=== PATIENT | female | born 1965 | race African-American/Black ===

== ENCOUNTER → 2017-02-21 | Outpatient (CLI) | payer MEDICARE, OTHER ==
[~2017-02-21] MED LIST: ?ANTIBIOTIC; ALBUTEROL17 GM INH; ALBUTEROL17 GM NEB; ALER-CAP25 M1 PO; ALLERGY RELIEF25 MG PO; ALPRAZOLAM PO; ALPRAZOLAM0.5 MG PO; ATARAX PO; ATIVAN PO; BACTRIM DS TABL1 TA1 PO; BAYER ASPIRIN325 M1 PO; BENADRYL PO; BENADRYL25 M3 PO; BENADRYL25 MG PO; BENZONATATE PO; BENZTROPINE MESY1 MG PO; CIPRO PO; COMBIVENT U/D3 M4 INH; COUMADIN; COUMADIN PO; DILANTIN KAPSE100 MG PO; DILANTIN PO; ENOXAPARIN60 MG/0.1 SQ; FLUCONAZOLE150 MG PO; HYDROCODONE-APA1 T54 PO; HYDROCODONE-APA1 T58 PO; HYDROXYZINE HCL10 MG PO; HYDROXYZINE HCL25 M1 PO; HYDROXYZINE HCL50 MG PO; IPRAT-ALBUT 0.5-3 ML INH; KEPPRA1000 MG PO; KEPPRA750 MG PO; LAMICTAL PO; LAMICTAL100 MG PO; LEVAQUIN250 MG PO; LEVETIRACETAM1000 MG PO; LORTAB 7.5-5001 TAB PO; LOVENOX SUBQ; MEDROL4 MG/DOSE- PO; MINIPRESS PO; MIRTAZAPINE30 MG PO; MULTI VITAMIN1 EACH PO; MULTI-DAY VITAM1 TAB PO; MULTIVITAMIN1 UDCAP PO; NEURONTIN300 MG PO; OMEPRAZOLE20 M2 PO; PAIN MEDS; PANCREASE PO; PARAFON FORTE500 MG PO; PENICILLIN; PHENERGAN PR; PHENERGAN/CODEIN5 ML PO; PHENERGAN25 M1 PO; PHENERGAN25 MG PO; PHENOBARB PO; PHENOBARBITAL100 MG PO; PHENOBARBITAL60 MG PO; PHENYTOIN SODI100 M4 PO; PRAZOSIN HCL2 MG PO; PRILOSEC20 M1 PO; PROAIR HFA8.5 GM IH; PROTONIX PO; PROVENTIL0.83 MG/ML; REGLAN10 MG PO; REMERON PO; REMERON30 MG PO; REMERON45 MG PO; SAPHRIS5 MG SL; SEROQUEL PO; SEROQUEL XR200 MG PO; SEROQUEL25 MG PO; SILVADENE TOP; SPIRIVA18 MCG INH; SYMBICORT; TRANSDERM-1 PATCH .7 TOP; VENTOLIN5 MG/ML IH; XANAX0.5 M1 PO; XANAX0.5 MG PO; ZOFRAN ODT4 MG PO; ZOVIRAX200 MG PO; ZYPREXA PO; [UNRECOGNIZED DRUG - REMARK]; [UNRECOGNIZED DRUG - REMARK]; [UNRECOGNIZED DRUG - REMARK]
--- NOTE | ~2017-02-21 | US85 ---
[facility] A Service of [facility] RADIOLOGY TEXT RESULTS PATIENT: SALLIE THOMPSON LOCATION: [facility] : 63 UNIT #: [id number] AGE: [address]: Verenice Núñez MD SEX: F ORDER DR: [id number] [facility] [address] [place], [place] [address] [id number] O MR#: [id number] Acc #: [id number] NAME: SALLIE THOMPSON : 1965 SEX: F STUDY DATE/TIME: 02/21/2017 15:42 UNIT: [facility] ROOM: STUDY DESCRIPTION: [facility] Attending Physician: Verenice Núñez M.D. Referring Physician: Verenice Núñez M.D. Ordering Physician: Verenice Núñez M.D. Primary Care Physician: Didi Kee Aprn MEDICAL IMAGING REPORT This report is preliminary unless electronic signature is present EXAM Left lower extremity venous Doppler. INDICATIONS Previous history of DVT on Coumadin therapy. Left leg pain and swelling for the past several months. PROCEDURE Johnson-scale, color Doppler and spectral imaging deep veins left leg. COMPARISON 07/15/2016 FINDINGS There is incomplete compressibility of the left common femoral vein, femoral vein, popliteal vein and deep femoral vein. There is incomplete compressibility of the greater saphenous vein in the upper left leg. There is no appreciable intraluminal thrombus seen. The vessels fill with color Doppler. IMPRESSION 1. Incomplete compressibility of the essentially entire left leg deep venous system shows features most in keeping with changes of chronic DVT. 2. Changes of chronic DVT in the greater saphenous vein in the upper left leg. Dictated by... Vargas Carpenter M.D. THIS IS AN ELECTRONICALLY VERIFIED REPORT Vargas Carpenter M.D. at 02/22/2017 1:56 PM [facility] A Service of [facility] RADIOLOGY TEXT RESULTS PATIENT: SALLIE THOMPSON LOCATION: [facility] #: [id number] : 63 UNIT #: [id number] AGE: [address]: Verenice Núñez MD SEX: F ORDER DR: Kameron TD: 02/21/2017 17:28 JOB #: [id number] MEDICAL IMAGING REPORT Page 1 of 1 COPY
== END | disposition home or self-care (01) ==
LOC: CGUS 14:39
DX: I82.409 Acute embolism and thrombosis of unspecified deep veins of unspecified lower extremity (principal); I82.5Z2 Chronic embolism and thrombosis of unspecified deep veins of left distal lower extremity
CPT/HCPCS: 93971

== ENCOUNTER 2017-03-30 20:57 | Emergency (ER) | payer MEDICARE, OTHER ==
--- NOTE | ~2017-03-30 | EKG ---
PATIENT: SALLIE THOMPSON UNIT #: [id number] Ventricular Rate: 82 BPM Atrial Rate: 82 BPM P-R Interval: 146 ms QRS Duration: 72 ms Q-T Interval: 364 ms QTC Calculation(Bezet): 425 ms P Osprey: 52 degrees Calculated R Osprey: 32 degrees Calculated T Osprey: 50 degrees Diagnosis Line: Normal sinus rhythm Diagnosis Line: Normal ECG Diagnosis Line: When compared with ECG of 30-JAN-2016 20:43, Diagnosis Line: No significant change was found Diagnosis Line: Confirmed by ERG BAI MD ([id number]) on Diagnosis Line: 04/01/2017 2:48:37 PM INTERPRETING MD: FELICE
--- NOTE | ~2017-03-30 | CR72 ---
[facility] A Service of [facility] RADIOLOGY TEXT RESULTS PATIENT: SALLIE THOMPSON LOCATION: [facility] : 63 UNIT #: [id number] AGE: [address]: Kyle Petersen DO SEX: F ORDER DR: [id number] [facility] [address] [place], [place] [address] [id number] E MR#: [id number] Acc #: [id number] NAME: SALLIE THOMPSON : 1965 SEX: F STUDY DATE/TIME: 03/30/2017 21:34 UNIT: [facility] ROOM: STUDY DESCRIPTION: CR Chest Single View Portable Attending Physician: Kyle Petersen D.O. Ordering Physician: Kyle Petersen D.O. Primary Care Physician: Didi Kee Aprn MEDICAL IMAGING REPORT This report is preliminary unless electronic signature is present EXAM Portable chest HISTORY Shortness of air and right-sided chest pain for 3 days. COMPARISON 03/05/2017 FINDINGS AP portable view of the chest demonstrates a small amount of right basilar atelectasis. No infiltrates or effusions. Heart and mediastinum unremarkable. Indwelling venous access port noted. No pneumothorax. Dictated by... Nely Albright M.D. THIS IS AN ELECTRONICALLY VERIFIED REPORT Nely Albright M.D. at 03/31/2017 10:11 AM Ayaz TD: 03/31/2017 04:38 JOB #: [id number] MEDICAL IMAGING REPORT Page 1 of 1 COPY
[2017-03-30 22:44] LABS: BASOPHIL% 0.4 % (0-2.5); EOSINOPHIL# 0.2 X10e3 (0-0.7); HEMATOCRIT 38.3 % (35.0-45.0); HEMOGLOBIN 12.4 gm/dL (12.0-16.0); LYMPHOCYTE# 0.7 X10e3 (1.0-3.5); LYMPHOCYTE% 12.1 % (17.0-45.0); MEAN CELL VOLUME 87.6 FL (83-96); MEAN CORPUSCULAR HEMOGLOBIN 28.4 PG (28-34); MEAN CORPUSCULAR HGB CONC 32.4 g/dL (30-36); MEAN PLATELET VOLUME 7.7 FL (6.5-11.5); MONOCYTE# 0.6 X10e3 (0-1.0); MONOCYTE% 9.6 % (3.0-12.0); NEUTROPHIL# 4.5 X10e3 (1.5-7.1); NEUTROPHIL% 73.9 % (40-75); PLATELET COUNT 189 X10e3 (140-420); RED BLOOD COUNT 4.37 X10e (3.90-5.30); RED CELL DISTRIBUTION WIDTH 23.3 % (11.0-15.5); WHITE BLOOD COUNT 6.1 X10e3 (4.0-10.5)
[2017-03-30 22:46] LABS: DIFF IND YES
[2017-03-30 22:51] LABS: POC - CKMB <1.0 ng/mL (0.0-7.9); POC - TROPONIN <0.05 ng/mL (<=0.05)
[2017-03-30 22:57] LABS: PARTIAL THROMBOPLASTIN TIME 54.3 SECONDS (23.5-31.3); PROTHROMBIN TIME (PATIENT) 69.6 SECONDS (10.0-11.7)
[2017-03-30 23:04] LABS: INR 6.4
[2017-03-30 23:10] LABS: ALBUMIN SERUM 3.7 g/dL (3.5-5.0); BILIRUBIN,TOTAL 0.3 mg/dL (0.2-2.0); CALCIUM SERUM 8.5 mg/dL (8.4-10.2); GLOM FILT RATE Estimated 74.5 mL/min (>60); POTASSIUM 4.3 mmol/L (3.5-5.1); PROTEIN TOTAL SERUM 6.7 g/dL (6.0-8.3)
[2017-03-30 23:12] LABS: BILIRUBIN, DIRECT 0.1 mg/dL (0.0-0.2); BILIRUBIN,INDIRECT 0.2 mg/dL (0.0-0.9)
[2017-03-30 23:20] LABS: PLATELET ESTIMATE DECREASED (NORMAL)
[2017-03-30 23:22] LABS: TARGET CELLS SL
== END 2017-03-31 | disposition home or self-care (01) ==
LOC: CED 20:57
PROVIDERS: Emergency Medicine
DX: R07.89 Other chest pain (principal); J44.9 Chronic obstructive pulmonary disease, unspecified; Z90.49 Acquired absence of other specified parts of digestive tract; I10 Essential (primary) hypertension; Z88.0 Allergy status to penicillin; Z88.8 Allergy status to other drugs, medicaments and biological substances; Z79.899 Other long term (current) drug therapy
CPT/HCPCS: 36415; 71010; 80048; 80076; 80185; 82553; 83690; 83880; 84484; 85025; 85610; 85730; 93005; 99285; J2405